=== PATIENT | female | born 1950 | race Caucasian/White ===

== ENCOUNTER 2018-02-28 12:57 | Outpatient (REF) | payer BC, SELFPAY ==
--- NOTE | 2018-02-28 12:00 | PAPFT_PTH ---
PATIENT: Nilsa Boss LOC: [facility] U#:[id number] AGE/SX: 67/F ROOM: RE02/28/[address]: Estelita Villegas : 1950 BED: DIS: 02/28/2018 SPEC #: [id number] RECD: 03/01/18 12:45 STATUS: WILDA REQ #: [id number] CECE: 02/28/18 12:[address]: Estelita Villegas DEPT: [facility] Cytology RECD BY: Lindsey Aguillon Tissues: 1 - CX/ENDOCX FOR PAP SMEARS Procedures: PAP THIN PREP/[facility] Screening HPV DNA PROBE Comments: [id number]
== END 2018-02-28 13:17 ==
LOC: NCHCN 12:57
PROVIDERS: PCP Family Medicine; Visit Provider Family Medicine
DX: Z12.4 Encounter for screening for malignant neoplasm of cervix (principal); Z11.51 Encounter for screening for human papillomavirus (HPV)
CPT/HCPCS: 88142; 87624

== ENCOUNTER 2018-03-09 12:31 | Outpatient (REF) | payer BC, SELFPAY ==
[2018-03-09 21:21] LABS: BUN 11 mg/dL (7-18); Calcium 9.8 mg/dL (8.5-10.1); Chloride 98 mmol/L (98-107); Cholesterol 304 mg/dL (50-200); Estimated GFR 55.47 (mL/min/1.73m2); Glucose 168 mg/dL (70-100); HDL Cholesterol 44 mg/dL (40-60); LDL CHOLESTEROL 225 mg/dL (<100); Potassium 3.8 mmol/L (3.5-5.1); Sodium 137 mmol/L (136-145); Triglyceride 223 mg/dL (30-150)
== END 2018-03-09 12:51 ==
LOC: NCHCN 12:31
PROVIDERS: PCP Family Medicine; Visit Provider Family Medicine
DX: E78.5 Hyperlipidemia, unspecified (principal); I10 Essential (primary) hypertension
CPT/HCPCS: 80048; 80061; 83721

== ENCOUNTER 2019-02-16 22:03 | Outpatient (REF) | payer BC, SELFPAY ==
[2019-02-16 22:08] LABS: Anion Gap 10.1 mmol/L (3-11); BUN 15 mg/dL (7-18); CO2 27.9 mmol/L (21.0-32.0); CREATININE 0.96 mg/dL (0.55-1.02); Calcium 9.6 mg/dL (8.5-10.1); Calculated LDL 82 mg/dL; Chloride 102 mmol/L (98-107); Cholesterol 159 mg/dL (50-200); Estimated GFR 57.97 (mL/min/1.73m2); Glucose 100 mg/dL (70-100); HDL Cholesterol 57 mg/dL (40-60); Sodium 140 mmol/L (136-145); Triglyceride 103 mg/dL (30-150)
[2019-02-16 22:41] LABS: ALT 38 U/L (14-59); COMMENT (LAB VIEW ONLY) 167.33 mg/dL; Microalb ug/mg Crea 4.5 ug/mg Cr
== END 2019-02-16 22:23 ==
LOC: NCHCN 22:03
PROVIDERS: PCP Family Medicine; Visit Provider Family Medicine
DX: I10 Essential (primary) hypertension (principal); E78.5 Hyperlipidemia, unspecified; E11.9 Type 2 diabetes mellitus without complications
CPT/HCPCS: 80048; 80061; 82043; 82570; 84460

== ENCOUNTER 2020-03-05 13:52 | Outpatient (REF) | payer BC, SELFPAY ==
[2020-03-10 13:57] LABS: Patient Race White; SARS-CoV-2 RNA Undetected (Undetected); SARS-CoV-2 Specimen Source Nasal
== END 2020-03-05 14:12 ==
LOC: NCHCN 13:52
PROVIDERS: PCP Family Medicine; Visit Provider Family Medicine
DX: Z20.828 Contact with and (suspected) exposure to other viral communicable diseases (principal)
CPT/HCPCS: U0003

== ENCOUNTER 2021-10-19 19:13 | Outpatient (REF) | payer BC, SELFPAY ==
[2021-10-19 14:29] LABS: Anion Gap 8.2 mmol/L (3-11); BUN 23 mg/dL (7-18); CO2 26.8 mmol/L (21.0-32.0); CREATININE 0.9 mg/dL (0.55-1.02); Calcium 9.3 mg/dL (8.5-10.1); Calculated LDL 96 mg/dL (<100); Chloride 105 mmol/L (98-107); Cholesterol 190 mg/dL (<200); Glucose 113 mg/dL (74-106); HDL Cholesterol 74 mg/dL (40-60); Potassium 4.6 mmol/L (3.5-5.1); Sodium 140 mmol/L (136-145); TSH 1.96 uIU/mL (0.36-3.74); Triglyceride 102 mg/dL (<150)
[2021-10-19 15:04] LABS: COMMENT (LAB VIEW ONLY) 206.05 mg/dL
== END 2021-10-19 19:14 | disposition home or self-care (01) ==
LOC: NCHCN 19:13
PROVIDERS: PCP Family Medicine; Visit Provider Family Medicine
DX: E11.9 Type 2 diabetes mellitus without complications (principal); I10 Essential (primary) hypertension; E78.5 Hyperlipidemia, unspecified; Z13.29 Encounter for screening for other suspected endocrine disorder
CPT/HCPCS: 80048; 80061; 82043; 82570; 84443

== ENCOUNTER 2023-06-13 18:22 | Outpatient (REF) | payer MEDICARE, SELFPAY ==
[2023-06-13 15:12] LABS: Calculated LDL 205 mg/dL (<100); Cholesterol 292 mg/dL (<200); HDL Cholesterol 59 mg/dL (40-60); Triglyceride 140 mg/dL (<150)
[2023-06-13 15:21] LABS: Hemoglobin A1C 10.1 % (<5.7)
== END 2023-06-13 18:23 | disposition home or self-care (01) ==
LOC: NCHCN 18:22
PROVIDERS: PCP Family Medicine; Referring Provider Family Medicine; Visit Provider Family Medicine
DX: E11.42 Type 2 diabetes mellitus with diabetic polyneuropathy (principal)
CPT/HCPCS: 80061; 83036

== ENCOUNTER 2023-10-19 18:31 | Outpatient (REF) | payer MEDICARE, SELFPAY ==
[2023-10-19 21:51] LABS: Anion Gap 8.7 mmol/L (3-11); BUN 17 mg/dL (7-18); CO2 27.3 mmol/L (21.0-32.0); COMMENT (LAB VIEW ONLY) 210.16 mg/dL; Calcium 9.5 mg/dL (8.5-10.1); Calculated LDL 74 mg/dL (<100); Chloride 103 mmol/L (98-107); Cholesterol 157 mg/dL (<200); Estimated GFR 60.23 (mL/min/1.73m2); Glucose 186 mg/dL (74-106); HDL Cholesterol 61 mg/dL (40-60); Microalb ug/mg Crea 3.2 ug/mg Cr; Potassium 4.4 mmol/L (3.5-5.1); Sodium 139 mmol/L (136-145); Triglyceride 113 mg/dL (<150)
== END 2023-10-19 18:32 | disposition home or self-care (01) ==
LOC: NCHCN 18:31
PROVIDERS: PCP Family Medicine; Visit Provider Family Medicine
DX: E11.42 Type 2 diabetes mellitus with diabetic polyneuropathy (principal); E78.5 Hyperlipidemia, unspecified
CPT/HCPCS: 80048; 80061; 82043; 82570

== ENCOUNTER 2024-05-08 10:17 | Outpatient (REF) | payer MEDICARE, SELFPAY ==
[2024-05-08 16:13] LABS: Abs Immature Grans 0.01 10^3/uL (0.0-0.06); Absolute Basophil Count 0.06 10^3/uL (0.0-0.2); Absolute Eosinophil Count 0.19 10^3/uL (0.0-0.7); Absolute Lymphocyte Count 1.37 10^3/uL (1.2-3.4); Absolute Monocyte Count 0.42 10^3/uL (0.1-0.8); Absolute Neutrophil Count 4.68 10^3/uL (1.2-6.7); Basophils % 0.9 %; Eosinophils % 2.8 %; HCT 41.3 % (36.0-46.0); HGB 13.8 g/dL (11.2-15.7); Immature Grans % 0.1 %; Lymphocytes % 20.4 %; MCHC 33.4 % (32.0-36.0); MCV 90 fL (80-95); MPV 11.8 fL (8.0-11.0); Monocytes % 6.2 %; Neutrophils % 69.6 %; Platelet Count 225 10^3/uL (130-400); RDW-SD 42.3 fL; WBC 6.73 10^3/uL (4.4-10.8)
[2024-05-08 16:37] LABS: Anion Gap 7.2 mmol/L (3-11); BUN 20 mg/dL (7-18); CO2 28.8 mmol/L (21.0-32.0); CREATININE 1.2 mg/dL (0.55-1.02); Calcium 9.5 mg/dL (8.5-10.1); Chloride 102 mmol/L (98-107); Estimated GFR 48.09 (mL/min/1.73m2); Glucose 377 mg/dL (74-106); Potassium 4.7 mmol/L (3.5-5.1); Sodium 138 mmol/L (136-145)
== END 2024-05-08 10:18 | disposition home or self-care (01) ==
LOC: NCHCN 10:17
PROVIDERS: PCP Family Medicine; Visit Provider Nurse Practitioner Family
DX: R31.29 Other microscopic hematuria (principal)
CPT/HCPCS: 80048; 85025

== ENCOUNTER 2025-02-25 12:19 | Outpatient (REF) | payer MEDICARE, SELFPAY ==
[2025-02-25 22:01] LABS: Anion Gap 9.8 mmol/L (3-11); BUN 19 mg/dL (7-18); CO2 26.2 mmol/L (21.0-32.0); Calcium 9.4 mg/dL (8.5-10.1); Chloride 101 mmol/L (98-107); Cholesterol 283 mg/dL (<200); Glucose 261 mg/dL (74-106); HDL Cholesterol 64 mg/dL (>or=50); Potassium 4.1 mmol/L (3.5-5.1); Sodium 137 mmol/L (136-145)
[2025-02-25 22:36] LABS: Microalb ug/mg Crea 8.3 ug/mg Cr
== END 2025-02-25 12:20 | disposition home or self-care (01) ==
LOC: NCHCN 12:19
PROVIDERS: PCP Family Medicine; Visit Provider Family Medicine
DX: E11.65 Type 2 diabetes mellitus with hyperglycemia (principal); Z13.220 Encounter for screening for lipoid disorders; I10 Essential (primary) hypertension
CPT/HCPCS: 80048; 80061; 82043; 82570